=== PATIENT | male | born 1995 | race Caucasian/White ===

== ENCOUNTER → 2022-03-20 11:30 | Outpatient (BNVA) | payer SELFPAY | PROVIDERS: Family Provider Nurse Practitioner Family; PCP Nurse Practitioner; Visit Provider Registered Nurse Neonatal Intensive Care | DX: U07.1 COVID-19 (principal) | CPT/HCPCS: 87635 ==

== ENCOUNTER 2022-05-18 15:24 | Emergency (ER) | payer OTHER, SELFPAY ==
--- NOTE | 2022-05-18 15:32 | XRR_ITS ---
PROCEDURE INFORMATION: Exam: XR Right Ankle Exam date and time: 05/18/2022 3:46 PM Age: 27 years old Clinical indication: Injury or trauma; Fall; Blunt trauma; Right; Injury date: 05/17/22; Injury details: History--rt ankle pain; PT states he fell backwards last pm, ankle pain has not decreased since; Additional info: R ankle pain TECHNIQUE: Imaging protocol: Radiologic exam of the Right ankle. Views: 3 or more views. COMPARISON: No relevant prior studies available. FINDINGS: Bones/joints: Mild tibiotalar joint osteoarthritis. Soft tissues: Soft tissue swelling about the ankle. XR/XR ankle RT min 3V* [id number] IMPRESSION: 1. Negative for fracture or dislocation. 2. Soft tissue swelling about the ankle. 3. Mild tibiotalar joint osteoarthritis.
[2022-05-18 15:50] VITALS: BP 178/85; PULSE 74; RESP 16; TEMP 37.1; O2SAT 97; BMI 38.5
--- NOTE | 2022-05-18 16:09 | W.ED.EXTPRO ---
HPI - Extremity Problem General: Chief complaint: Extremity Injury, Lower Stated complaint: Right ankle pain Time Seen by Provider: 05/18/22 16:09 Source: patient Mode of arrival: ambulatory Limitations: no limitations History of Present Illness: 27-year-old male presents to the ER today for right ankle pain. Patient reports it started hurting yesterday and he thinks he might of stepped on it wrong. Patient reports prior injuries and sprained ankles to this ankle in the past. He reports there is mild swelling. He reports some pain with weightbearing but minimal pain at rest. Patient has not take anything for his symptoms at this time. Review of Systems General: Reports: 10 or more systems reviewed and unremarkable except in HPI and below Physical Exam Const: COMMON NORMALS: no acute distress, average body habitus, patient oriented x3, no limitations, healthy appearing, alert and well nourished Resp: COMMON NORMALS: normal respiratory effort EFFORT & INSPECTION: Yes able to speak in complete sentences Cardio: COMMON NORMALS: regular rate and regular rhythm RATE: regular rate RHYTHM: regular rhythm Back/Pelvis: COMMON NORMALS: thoraco-lumbar ROM normal Extremity: NARRATIVE EXTREMITY EXAM: Patient has minimal swelling over the right lateral malleolus with minimal tenderness to palpation. Patient has normal gait with ambulation and normal range of motion. No obvious swelling or deformities noted no bruising noted. Neuro: COMMON NORMALS: patient oriented x3 SENSORIUM/ORIENTATION: Yes alert Psych: COMMON NORMALS: mental status grossly normal, Normal thought process present and cooperative THOUGHT PROCESS: Normal thought process present Skin: COMMON NORMALS: no rashes or lesions noted and no wounds GENERAL SKIN EXAM: no rashes or lesions noted Course ED course: 27-year-old male presents to the ER today for right ankle pain after an injury yesterday. Patient reports he was walking and stepped on it wrong. He reports a prior injury to this ankle in the past. Patient denies any bruising or major swelling at this time. Patient reports he has pain with ambulation and weightbearing but is able to do it. Patient reports normal range of motion. Patient has not take anything for pain at this time. We will go ahead and get an x-ray of patient's right ankle. Vital Signs: Vital signs: Vital Signs Temperature 98.7 F 05/18/22 15:50 Pulse Rate 74 05/18/22 15:50 Respiratory Rate 16 05/18/22 15:50 Blood Pressure 178/85 05/18/22 15:50 Pulse Oximetry 97 05/18/22 15:50 Oxygen Delivery Me thod 05/18/22 15:50 MDM - Extremity (Nontraumatic) Medical Decision Making 27-year-old male presents to the ER today for right ankle pain after an injury yesterday. Patient reports he was walking and stepped on it wrong. He reports a prior injury to this ankle in the past. Patient denies any bruising or major swelling at this time. Patient reports he has pain with ambulation and weightbearing but is able to do it. Patient reports normal range of motion. Patient has not take anything for pain at this time. We will go ahead and get an x-ray of patient's right ankle. X-ray is normal. Patient does have noted arthritis in the ankle which likely is causing some of the pain. Recommended patient take an anti-inflammatory for the next 7 days to help with pain. Recommended rest, ice, elevation. Follow-up with PCP in 10 to 14 days if no improvement in symptoms. Return to the ER with any new or worsening symptoms. Patient verbalized understanding and was in agreement with the treatment plan. Lab Data Radiology Impressions Ankle X-Ray 05/18/22 15:32 IMPRESSION: 1. Negative for fracture or dislocation. 2. Soft tissue swelling about the ankle. 3. Mild tibiotalar joint osteoarthritis. Critical Care Time Critical Care Time: Critical Care Time: No Discharge Plan Discharge Patient Disposition: Home Clinical Impression: Right ankle sprain Qualifiers: Encounter type: initial encounter Involved ligament of ankle: unspecified ligament Qualified Code(s): S93.401A - Sprain of unspecified ligament of right ankle, initial encounter Condition: Stable Prescriptions: No Action No Known Home Medications Discharge Orders: Discharge ED (Routine); Ordered 05/18/22 Ordered By: Elif Roman Referrals: Shila Schultz FNP [Primary Care Provider] - Discharge Diet: Usual diet Discharge Activity: Increase activity as tolerated Patient Instructions: Opioid Safety Activity Restrictions/Additional Instructions: Rest, ice, elevation recommended. Take ibuprofen or Aleve as discussed x7 days. Apply ice to reduce swelling. Follow-up with PCP in 10 to 14 days if no improvement. Return to the ER with new or worsening symptoms. 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
== END 2022-05-18 16:20 | disposition home or self-care (01) ==
PROVIDERS: Emergency Provider Physician Assistant; PCP Nurse Practitioner
DX: S93.401A Sprain of unspecified ligament of right ankle, initial encounter (principal); X58.XXXA Exposure to other specified factors, initial encounter
CPT/HCPCS: 73610; 99283

== ENCOUNTER → 2025-07-06 08:30 | Outpatient (BNVA) | payer SELFPAY | PROVIDERS: PCP Family Medicine; Visit Provider Family Medicine | DX: Z13.6 Encounter for screening for cardiovascular disorders (principal); R73.09 Other abnormal glucose | CPT/HCPCS: 80053; 80061; 83036; 84439; 84443; 85025 ==